=== PATIENT | male | born 1965 | race Caucasian/White ===

== ENCOUNTER 2024-01-08 09:25 | Outpatient (CLI) | payer OTHER, SELFPAY ==
--- NOTE | ~2024-01-08 | XR_ITS ---
EXAMINATION: XR cervical spine 4-5V DATE: 01/08/2024 09:42 INDICATION: Neck pain. TECHNIQUE: 5 views of cervical spine including flexion and extension views were obtained. COMPARISON: None. FINDINGS: There is 5 degrees dextrocurvature of cervicothoracic spine. There is 2 mm anterolisthesis of C7 on T1. The spine is hypomobile with flexion and extension. Vertebral body heights are normal. T here is mildly decreased disc height at C3-C4, moderately decreased disc height at C4-C5, and severel y decreased disc height at C5-C6 and C6-C7. 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 Osseous central spinal canal is developmentally small. There is no prevertebral soft tissue s welling. IMPRESSION: 1. Severe cervical spondylosis. Reviewed, dictated and finalized at location A.
== END 2024-01-08 09:26 ==
PROVIDERS: PCP Family Medicine; Visit Provider Family Medicine
DX: M47.892 Other spondylosis, cervical region (principal)
CPT/HCPCS: 72050